=== PATIENT | male | born 1985 | race Caucasian/White ===

== ENCOUNTER 2024-11-29 12:04 | Emergency (ER) | payer MEDICAID, SELFPAY ==
[2024-11-29 12:29] VITALS: BP 136/82; PULSE 97; RESP 18; TEMP 36.9; O2SAT 100
--- NOTE | 2024-11-29 12:45 | EDNOTE_ITS ---
ED General RME/HPI General Chief complaint: Animal Bite Stated complaint: SPIDER BITE L) CHEEK Time Seen by Provider: 11/29/24 12:37 Arrival date/time: 11/29/24 12:04 RME / HPI RME / HPI narrative: 38-year-old male presents to the ED with a complaint of a possible spider bite to his left cheek. He states he was crawling under his aunts porch yesterday but does not remember anything specific. Last night he noticed a lump with redness on his left cheek. Initially he thought it was a pimple and he squeezed it but nothing came out. Today it is a little bigger. He denies any fever or chills or difficulty with his vision. Related Data Allergies Allergy/AdvReac Type Severity Reaction Status Date / Time No Known Allergies Allergy Verified 11/29/24 12:08 Review of Systems Review of Systems Systems Reviewed: All systems reviewed, normal except as documented Past Medical History Social History SMOKING STATUS: Current every day smoker ED Exam Narrative Physical exam: Alert and oriented 39-year-old male, no acute distress. Vital signs blood pressure 136/82, pulse 97, respirations 18 and nonlabored, temperature 98.4, O2 sat 100% on room air. Lungs are clear, regular rate and rhythm. Abdomen is soft and nontender. Neck is supple, no adenopathy. Left cheek with small abscess, currently draining, no significant erythema. Mild tenderness to the area immediately surrounding the small abscess. No tenderness to the maxilla, mandible or nares. Course Course Course Narrative: 38-year-old male patient presents to the ED with a complaint of a small abscess to the left cheek with no evidence of cellulitis. No I&D was performed as the wound is already draining. Quality Measures none Vital Signs Vital signs: Vital Signs Temperature 98.4 F 11/29/24 12:29 Pulse Rate 97 11/29/24 12:29 Respiratory Rate 18 11/29/24 12:29 Blood Pressure 136/82 H 11/29/24 12:29 Pulse Oximetry (%) 100 11/29/24 12:29 Oxygen Delivery Method Room Air 11/29/24 12:29 Discharge Plan Plan Patient Disposition: HOME (Self Care) Discharge Disposition comment: Stable Problem List Clinical Impression: Abscess Patient/Caregiver Discharge Instructions Education Materials: ED Abscess Antibiotic ... Additional Instructions: Slightly warm moist compresses to the area every 4 hours for 20 minutes each. Follow-up with your primary care physician in 24 to 48 hours. Return to the ED for any new or worsening symptoms. Print Language: Hungarian Stand Alone Forms: [employer] Award Info., Patient Portal Info Letter PA/SHADI Supervising Physician PA/SHADI Supervising Physician: Dr. Smallwood [facility] Narrative [facility] hospital course: 38-year-old male presents to the ED with a complaint of a possible spider bite to his left cheek. He states he was crawling under his aunts porch yesterday but does not remember anything specific. Last night he noticed a lump with redness on his left cheek. Initially he thought it was a pimple and he squeezed it but nothing came out. Today it is a little bigger. He denies any fever or chills or difficulty with his vision. Alert and oriented 39-year-old male, no acute distress. Vital signs blood pressure 136/82, pulse 97, respirations 18 and nonlabored, temperature 98.4, O2 sat 100% on room air. Lungs are clear, regular rate and rhythm. Abdomen is soft and nontender. Neck is supple, no adenopathy. Left cheek with small abscess, currently draining, no significant erythema. Mild tenderness to the area immediately surrounding the small abscess. No tenderness to the maxilla, mandible or nares. No I&D was performed as the wound is already draining. He will be discharged home with instructions to apply warm moist compresses to the area to continue the drainage process. He was also instructed to follow-up with his primary care physician in 24 to 48 hours and to return to the ED for any new or worsening symptoms. Clinical Information Provided by patient Medical Records Reviewed None Meds/Rx Considered, not Ordered None Labs/Rad/Tests considered, not Ordered None Chronic Illness/Social Conditions which may negatively complicate care or outcome(s)-explain: None or not applicable EKG EKG not done Lab Interpretation Labs: none Imaging Imaging interpretation: none Medication Administration(s) none Diagnosis Differential diagnosis: Insect bite, abscess without cellulitis, abscess with cellulitis Most likely dx, and/or detailed dx discussion: Draining abscess without cellulitis. Dispositon Disposition: Discharge Home
--- NOTE | 2024-11-29 12:47 | PD.EDRME ---
Rapid Medical Screening Exam RME Arrival date/time: 11/29/24 12:04 Chief Complaint: Animal Bite Time Seen by Provider: 11/29/24 12:37 Vital signs: Vital Signs Temperature 98.4 F 11/29/24 12:29 Pulse Rate 97 11/29/24 12:29 Respiratory Rate 18 11/29/24 12:29 Blood Pressure 136/82 H 11/29/24 12:29 Pulse Oximetry (%) 100 11/29/24 12:29 Oxygen Delivery Method Room Air 11/29/24 12:29 Vital signs reviewed by provider: Yes RME Narrative: 38-year-old male presents to the ED with a complaint of a possible spider bite to his left cheek. He states he was crawling under his aunts porch yesterday but does not remember anything specific. Last night he noticed a lump with redness on his left cheek. Initially he thought it was a pimple and he squeezed it but nothing came out. Today it is a little bigger. He denies any fever or chills or difficulty with his vision.
== END 2024-11-29 13:41 | disposition home or self-care (01) ==
PROVIDERS: Emergency Provider Family Medicine
DX: L02.01 Cutaneous abscess of face (principal)
CPT/HCPCS: 99281